=== PATIENT | male | born 2000 | race Caucasian/White ===

== ENCOUNTER 2021-05-21 20:02 | Emergency (ER) | payer OTHER ==
[2021-05-21 20:16] VITALS: BP 122/57
--- NOTE | 2021-05-21 21:20 | ED Physician Documentation ---
PD HPI NVD - Stated complaint Stated Complaint: NAUSEA, FEVER - Chief complaint Chief Complaint: Abd Pain - History obtained from History obtained from: Patient - History of Present Illness Timing - onset: How many hours ago (6) Timing - details: Abrupt onset Pain level max: 0 Pain level now: 0 Associated symptoms: No: Fever, Abdominal pain Recently seen: Not recently seen - Additonal information Additional information: patient c/o nausea since earlier this afternoon, had single episode of emesis approximately 6 hours ago. has not vomited since then but nausea persists. He is not COVID vaccinated. He denies fever, pain, myalgias. Review of Systems Constitutional: denies: Fever Cardiac: reports: Reviewed and negative Respiratory: reports: Reviewed and negative GI: reports: Nausea, Vomiting. denies: Abdominal Pain, Constipation, Diarrhea PD PAST MEDICAL HISTORY - Past Medical History Past Medical History: No - Present Medications Home Medications: Ambulatory Orders Medication Instructions Recorded Confirmed Ondansetron Odt [Zofran Odt] 4 mg TL Q6H PRN #10 tablet 05/21/21 - Allergies Allergies/Adverse Reactions: Allergies Allergy/AdvReac Type Severity Reaction Status Date / Time No Known Drug Allergies Allergy Verified 05/21/21 20:12 PD ED PE NORMAL - Vitals Vital signs reviewed: Yes - General General: Alert and oriented X 3, No acute distress, Well developed/nourished - HEENT HEENT: Moist mucous membranes - Cardiac Cardiac: RRR, No murmur - Respiratory Respiratory: No respiratory distress, Clear bilaterally - Abdomen Abdomen: Soft, Non tender Results - Vitals Vitals: Vital Signs - 24 hr 05/21/21 20:12 Temperature 37.0 C Heart Rate 78 Respiratory 16 Rate Blood Pressure 122/57 L O2 Saturation 99 Oxygen O2 Source Room air PD MEDICAL DECISION MAKING - ED course Complexity details: considered differential, d/w patient ED course: nausea with one episode of emesis 6 hours [employer]. has no other c/o besides nausea. Given PO (TL) zofran and disharged with rx for same. Emergent testing not indicated at this time. Departure - Departure Disposition: 01 Home, Self Care Clinical Impression: Vomiting Condition: Good Instructions: ED Nausea Vomiting Follow-Up: FLORENCE Prince [Provider Group] Prescriptions: Ondansetron Odt [Zofran Odt] 4 mg TL Q6H PRN #10 tablet PRN Reason: Nausea / Vomiting Forms: Activity restrictions Discharge Date/Time: 05/21/21 21:55
[2021-05-21] MEDS: ONDANSETRON ODT 4 MG TABLET TL STA (21:52)
== END 2021-05-21 21:55 | disposition home or self-care (01) ==
LOC: ED 20:02
DX: R11.2 Nausea with vomiting, unspecified (principal)
CPT/HCPCS: 99282; 99283; Q0162

== ENCOUNTER 2022-03-30 22:25 | Emergency (ER) | payer OTHER ==
[2022-03-30 23:12] VITALS: BP 125/72
--- NOTE | 2022-03-31 01:08 | ED Physician Documentation ---
PD HPI UPPER EXT INJURY - Stated complaint Stated Complaint: LT ARM INJ - Chief complaint Chief Complaint: Ext Problem - History obtained from History obtained from: Patient - History of Present Illness Location: Left, Arm (posteriorly at lower humerus, pain to touch and with extension.) Type of injury: Other (he was doing upper body workout day prior but not excess above usual workout limits. No direct injury nor abrupt onset.). No: Fall, Twist Timing - onset: How many days ago (2) Timing - duration: Days (2) Timing - details: Gradual onset, Still present Improved by: Rest Worsened by: Moving, Palpating Associated symptoms: Numbness (feeling of numbness intermittently down to thumb and ring finger.). No: Weakness Similar symptoms before: Has not had sx before Recently seen: Not recently seen Review of Systems Constitutional: denies: Fever, Chills Nose: denies: Rhinorrhea / runny nose, Congestion Throat: denies: Sore throat Respiratory: denies: Cough Musculoskeletal: denies: Neck pain Neurologic: denies: Focal weakness PD PAST MEDICAL HISTORY - Past Medical History Cardiovascular: None Respiratory: None Neuro: None Musculoskeletal: None - Past Surgical History Past Surgical History: Yes HEENT: Other - Present Medications Home Medications: Ambulatory Orders Medication Instructions Recorded Confirmed Ondansetron Odt [Zofran Odt] 4 mg TL Q6H PRN #10 tablet 05/21/21 Naproxen 250 mg PO TID 7 Days #20 tablet 03/31/22 - Allergies Allergies/Adverse Reactions: Allergies Allergy/AdvReac Type Severity Reaction Status Date / Time No Known Drug Allergies Allergy Verified 03/30/22 23:11 - Social History Does the pt smoke?: No Smoking Status: Never smoker Does the pt drink ETOH?: No Does the pt have substance abuse?: No - Immunizations Immunizations are current?: Yes PD ED PE NORMAL - Vitals Vital signs reviewed: Yes - General General: Alert and oriented X 3, Well developed/nourished - Derm Derm: Normal color, Warm and dry - Extremities Extremities: Other (left elbow is tender posteriorly actually above the elbow joint in area of distal triceps. No effusion of elbow. Some tnederness in cubital tunnel area. ) - Neuro Neuro: Alert and oriented X 3, No motor deficit, No sensory deficit, Other (good pulses and cap refill distally. There is a somewhat duskier color of the forearm and hand compared to the right. No edema. ) Results - Vitals Vitals: Oxygen O2 Source Room air - Rads (name of study) left elbow Radiology: Prelim report reviewed (no fractures nor osseous abnormality.), See rad report PD MEDICAL DECISION MAKING - ED course Complexity details: considered differential (xray good. No abrupt injury. Triceps muscle tender without deformity and patient has good extension but hurts. Presume tendonitis. ), d/w patient Departure - Departure Disposition: 01 Home, Self Care Clinical Impression: Tendinitis of left triceps Condition: Stable Record reviewed to determine appropriate education?: Yes Follow-Up: FLORENCE Prince [Provider Group] Prescriptions: Naproxen 250 mg PO TID 7 Days #20 tablet Comments: Clinically this seems likely to be some inflammation of the triceps tendon insertion on the back of the elbow. Your x-ray is normal without any signs of bone abnormality such as fracture or cysts etc. This may be causing some spasming of the blood vessel and nerve running in the back/side of the elbow (cubital tunnel) and therefore the intermittent discoloration in the arm. I would suggest using a sling much of the time for the next 5 to 6 days. No vigorous use or working out with the arm during that time. Naproxen anti-inflammatories 3 times daily with food for the next 7 days. To that you could add Tylenol if needed for pain. Follow-up with your primary care later this coming week, call for an appointment. If it is persisting and not improving with the above interventions, other considerations could be local injection with the steroid, physical therapy, other interventions. Forms: Activity restrictions Discharge Date/Time: 03/31/22 02:10
[2022-03-31] MEDS ORDERED: IBUPROFEN 600 MG TABLET PO STA (01:50)
--- NOTE | 2022-03-31 07:30 | XRAY Report ---
PROCEDURE: Elbow 3 View LT INDICATIONS: Trauma TECHNIQUE: 3 views of the elbow were acquired. COMPARISON: None FINDINGS: Bones: No fractures or dislocations. No suspicious bony lesions. Soft tissues: No elbow joint effusion. No suspicious soft tissue calcifications. IMPRESSION: Normal left elbow radiographs Note: Final report is concordant with preliminary report provided by [facility] Reviewed by: Nick Degroot MD on 03/31/2022 6:29 AM JESUS Approved by: Nick Degroot MD on 03/31/2022 6:29 AM AKDT Station ID: [id number]
== END 2022-03-31 02:10 | disposition home or self-care (01) ==
LOC: ED 22:25
DX: M77.8 Other enthesopathies, not elsewhere classified (principal)
CPT/HCPCS: 73080; 99283; A9270